=== PATIENT | male | born 1995 | race Caucasian/White ===

== ENCOUNTER 2023-05-30 14:50 | Inpatient (IN) | payer MEDICAID ==
[~2023-05-30] VITALS: Ht 188 cm; Wt 78.1 kg
[2023-05-30] MEDS ORDERED: LIDOcaine 1% W/epiNEPHrine 1:100,000 20ml vial SQ ONE (15:40)
[2023-05-30] MEDS: ondansetron 4mg rapidly disintigrating tab PO ONE (15:45)
[2023-05-30] MEDS ORDERED: VANCOMYCIN 1,500MG inj. 1,500 MG in normal saline 500ml IV soln 300 ML IV SCH (15:45)
[2023-05-30] MEDS: HYDROcodone/acetaminophen 5mg/325mg tablet PO ONE (15:45)
[2023-05-30] MEDS: ketorolac trometh. 30mg/ml inj. IM ONE (15:47)
[2023-05-30] MEDS: LIDOCAINE 1%/EPI 1:100,000 inj. 10 ML multi-dose vial SQ ONE (15:48)
[2023-05-30] MEDS: TETanus/Pertussis (Acell)/Diphther VAC/PF (Tdap-Adult) 0.5ml syringe IMVAC ONE (15:53)
[2023-05-30] MEDS: VANCOMYCIN 1,500MG inj. 1,500 MG in normal saline 500ml IV soln 300 ML IV ONE (16:10)
[2023-05-30] MEDS: normal saline 1000ml 1,000 ML IV ONE (16:10)
[2023-05-30 17:31] LABS: BASOPHILS # (AUTO) 0.1 X10'3 (0-0.2); BASOPHILS % (AUTO) 0.6 % (0-1); EOSINOPHILS # (AUTO) 0.1 X10'3 (0-0.9); EOSINOPHILS % (AUTO) 0.3 % (0-6); HEMATOCRIT 37.3 % (42.0-52.0); HEMOGLOBIN 12.4 g/dl (14.0-17.9); LYMPHOCYTES % (AUTO) 10.8 % (21-51); MEAN CORPUSCULAR HGB CONC 33.3 g/dL (33.0-36.5); MEAN CORPUSCULAR VOLUME 93.2 FL (78-98); MEAN PLATELET VOLUME 6.8 FL (7.4-10.4); MONOCYTES # (AUTO) 1.4 X10'3 (0-0.9); MONOCYTES % (AUTO) 7.6 % (2-12); NEUTROPHILS # (AUTO) 14.8 X10'3 (1.8-7.7); NEUTROPHILS % (AUTO) 80.7 % (42-75); PLATELET COUNT 498 X10'3 (140-440); RED CELL DISTRIBUTION WIDTH 12.5 % (11.5-14.5); WHITE BLOOD COUNT 18.3 X10'3 (4.5-11.0)
[2023-05-30 17:48] LABS: ALANINE AMINOTRANSFERASE 12 U/L (12-78); ALBUMIN 2.9 G/DL (3.4-5.0); ALBUMIN/GLOBULIN RATIO 0.8 (1.1-1.5); ALKALINE PHOSPHATASE 71 IU/L (46-116); ANION GAP 9 (8-16); ASPARTATE AMINO TRANSFERASE 10 U/L (10-37); BILIRUBIN,TOTAL 0.5 MG/DL (0.1-1.0); BLOOD UREA NITROGEN 17 MG/DL (7-18); BUN/CREATININE RATIO 18.1 (10.0-20.0); C-REACTIVE PROTEIN 7.08 MG/DL (0.0-0.5); CALCIUM 8.2 MG/DL (8.5-10.1); CHLORIDE 106 MMOL/L (99-107); CREATININE 0.94 MG/DL (0.60-1.10); GLUCOSE 98 MG/DL (70-104); MAGNESIUM 1.8 MG/DL (1.5-2.4); POTASSIUM 3.6 MMOL/L (3.5-5.1); SODIUM 141 MMOL/L (135-145); TOTAL CARBON DIOXIDE 26.1 MMOL/L (24-32); TOTAL PROTEIN 6.5 G/DL (6.4-8.2); eCRCL 129 ML/MIN; eGFR > 90 ML/MIN
[2023-05-30] MEDS ORDERED: iohexol 300mg/ml 100ml inj. ONE (17:54)
[2023-05-30] MEDS: cefepime 2g/NS 100ml ADVANTAGE 100 ML IV ONE ×2 (18:29→20:00)
[2023-05-30] MEDS ORDERED: potassium Cl 20 mEq SR tablet PO PRN ×2 (19:40)
[2023-05-30] MEDS ORDERED: magnesium 4gm in 100ml NS 100 ML IV PRN (19:40)
[2023-05-30] MEDS ORDERED: potassium Cl 40MEQ/1/2NS 520ml 520 ML IV PRN (19:40)
[2023-05-30] MEDS ORDERED: ondansetron/PF 4mg/2ml inj IV PRN (19:40)
[2023-05-30] MEDS ORDERED: acetaminophen 325mg tablet PO PRN (19:40)
[2023-05-30] MEDS ORDERED: magnesium hydroxide 30ml (MOM) UD suspension PO PRN (19:40)
[2023-05-30] MEDS ORDERED: mag hydrox/Alum hydrox/simeth 30ml oral suspension PO PRN (19:40)
[2023-05-30] MEDS ORDERED: magnesium 2GM in 50ml NS 50 ML IV PRN (19:40)
[2023-05-30] MEDS ORDERED: magnesium Cl slow-release 64mg tablet PO PRN (19:40)
[2023-05-30] MEDS: K and/or MAG REPLACEMENT MC SCH (20:00)
[2023-05-30] MEDS: folic acid 1mg tablet PO ONE (20:00)
[2023-05-30] MEDS: thiamine 100mg tablet PO ONE (20:00)
[2023-05-30] MEDS ORDERED: enoxaparin 40mg/0.4ml syringe SQ SCH (20:00)
[2023-05-30] MEDS ORDERED: cefepime 2g/NS 100ml ADVANTAGE 100 ML IV SCH (20:00)
[2023-05-30] MEDS ORDERED: vancomycin/NS 1 GM ADD-VANTAGE 250 ML X 1 DOSE IV ONE ×2 (20:20→21:50)
[2023-05-30] MEDS ORDERED: VANCOmycin 2,000MG in NS 500ml IV soln IV ONE (21:00)
[2023-05-30] MEDS: normal saline 1000ml 1,000 ML IV SCH (21:40)
[2023-05-30] MEDS: heparin, porcine 5000 units/ml vial SQ SCH (21:53)
[2023-05-30] MEDS ORDERED: vancomycin/NS 1 GM ADD-VANTAGE 250 ML IV SCH (22:45)
[2023-05-30] MEDS: VANCOmycin 1250MG/NS 250ml Bag 250 ML IV SCH (23:21)
[2023-05-30 23:24] LABS: PHOSPHORUS 3.5 MG/DL (2.3-4.5); THYROID STIMULATING HORMONE 1.13 ulU/ml (0.34-4.50)
[2023-05-31 06:54] LABS: BASOPHILS # (AUTO) 0.1 X10'3 (0-0.2); BASOPHILS % (AUTO) 0.9 % (0-1); EOSINOPHILS # (AUTO) 0.1 X10'3 (0-0.9); EOSINOPHILS % (AUTO) 0.6 % (0-6); HEMATOCRIT 38.7 % (42.0-52.0); LYMPHOCYTES # (AUTO) 2.4 X10'3 (1.1-4.8); LYMPHOCYTES % (AUTO) 17.9 % (21-51); MEAN CORPUSCULAR HEMOGLOBIN 31.1 PG (27.0-31.0); MEAN CORPUSCULAR HGB CONC 33.6 g/dL (33.0-36.5); MEAN CORPUSCULAR VOLUME 92.6 FL (78-98); MEAN PLATELET VOLUME 7.2 FL (7.4-10.4); MONOCYTES % (AUTO) 7.2 % (2-12); NEUTROPHILS # (AUTO) 9.9 X10'3 (1.8-7.7); NEUTROPHILS % (AUTO) 73.4 % (42-75); PLATELET COUNT 453 X10'3 (140-440); RED BLOOD COUNT 4.18 X10'6 (4.70-6.10); RED CELL DISTRIBUTION WIDTH 12.8 % (11.5-14.5); WHITE BLOOD COUNT 13.5 X10'3 (4.5-11.0)
[2023-05-31] MEDS ORDERED: vancomycin/NS 1 GM ADD-VANTAGE 250 ML IV SCH (07:00)
[2023-05-31 07:30] LABS: ALANINE AMINOTRANSFERASE 12 U/L (12-78); ALBUMIN 2.9 G/DL (3.4-5.0); ALBUMIN/GLOBULIN RATIO 0.7 (1.1-1.5); ALKALINE PHOSPHATASE 70 IU/L (46-116); ANION GAP 5 (8-16); BILIRUBIN,TOTAL 0.5 MG/DL (0.1-1.0); BLOOD UREA NITROGEN 18 MG/DL (7-18); BUN/CREATININE RATIO 23.4 (10.0-20.0); CALCIUM 9.5 MG/DL (8.5-10.1); CHLORIDE 105 MMOL/L (99-107); CHOLESTEROL 136 MG/DL (0-200); CREATININE 0.77 MG/DL (0.60-1.10); GLUCOSE 106 MG/DL (70-104); HDL CHOLESTEROL 45 MG/DL (35-60); LDL CHOLESTEROL 65 MG/DL (50-100); SODIUM 138 MMOL/L (135-145); TOTAL CARBON DIOXIDE 28.4 MMOL/L (24-32); TOTAL PROTEIN 6.8 G/DL (6.4-8.2); TRIGLYCERIDES 83 MG/DL (20-135); eCRCL 158 ML/MIN; eGFR > 90 ML/MIN
[2023-05-31 07:50] LABS: ASPARTATE AMINO TRANSFERASE 13 U/L (10-37); POTASSIUM 4.2 MMOL/L (3.5-5.1)
[2023-05-31] MEDS: nicotine 21mg patch - 24 hr TD SCH (08:00)
[2023-05-31] MEDS: JUVEN Shake w/Arg/Glut/Ca2+Bmb (Juven 19.3gm) pkt 240ml PO SCH (08:00)
[2023-05-31] MEDS: pantoprazole 40mg Tablet.DR PO SCH (08:13)
[2023-05-31] MEDS: cefepime 2g/NS 100ml ADVANTAGE 100 ML IV SCH (09:53)
[2023-05-31 10:57] LABS: BILIRUBIN,URINE NEGATIVE (Neg); CLARITY,URINE CLEAR (Clear); COLOR,URINE YELLOW (Yellow); GLUCOSE, URINE NEGATIVE (Neg); KETONES,URINE NEGATIVE (Neg); LEUKOCYTE ESTERASE ,URINE NEGATIVE (Neg); NITRITES, URINE NEGATIVE (Neg); OCCULT BLOOD,URINE SMALL (Neg); PH,URINE 6.5 (4.8-8.0); PROTEIN,URINE NEGATIVE (Neg); UROBILINOGEN,URINE 0.2 E.U/dL (0.2-1.0)
[2023-05-31 11:06] LABS: UA COLLECTION TYPE CLN CATCH MIDSTREAM
[2023-05-31 11:19] LABS: URINE AMPHETAMINE SCREEN POSITIVE (Neg); URINE BARBITUATE SCREEN NEGATIVE (Neg); URINE BENZODIAZEPINES SCREEN NEGATIVE (Neg); URINE CANNABINOID SCREEN POSITIVE (Neg); URINE COCAINE SCREEN NEGATIVE (Neg); URINE METHADONE SCREEN NEGATIVE (Neg); URINE OPIATE SCREEN NEGATIVE (Neg); URINE PHENCYCLIDINE SCREEN NEGATIVE (Neg)
[2023-05-31 11:57] LABS: BACTERIA,URINE FEW /HPF (Neg); MUCUS STRANDS NONE SEEN /LPF (Neg); RBC,URINE 0-2 /HPF (0-2); SQUAMOUS EPITHELIAL CELL,UR FEW /LPF (FEW); WBC,URINE 0-4 /HPF (0-4)
[2023-05-31] MEDS: vancomycin/NS 1 GM ADD-VANTAGE 250 ML IV SCH (12:00)
[2023-05-31 13:30] VITALS: RESP 14; O2SAT 97
[2023-05-31] MEDS ORDERED: NO HOME MEDS (16:08)
[2023-05-31] MEDS: morphine 2 MG/ML inj. syringe IV PRN ×2 (16:18→21:17)
[2023-05-31 18:00] VITALS: BP 117/61; PULSE 60; RESP 13; TEMP 99.2; O2SAT 99
[2023-05-31] MEDS ORDERED: HYDROcodone/acetaminophen 5mg/325mg tablet PO PRN (18:25)
[2023-05-31] MEDS: HYDROcodone/acetaminophen 10/325mg tab PO PRN (18:52)
[2023-05-31 20:00] VITALS: RESP 13; O2SAT 99
[2023-05-31 22:00] VITALS: BP 120/61; PULSE 63; RESP 16; TEMP 98.1; O2SAT 97
[2023-05-31] MEDS: VANCOMYCIN LEVEL IV ONE (23:49)
[2023-06-01 06:25] LABS: BASOPHILS # (AUTO) 0.1 X10'3 (0-0.2); BASOPHILS % (AUTO) 1.1 % (0-1); EOSINOPHILS # (AUTO) 0.1 X10'3 (0-0.9); EOSINOPHILS % (AUTO) 1.2 % (0-6); HEMATOCRIT 35.4 % (42.0-52.0); HEMOGLOBIN 12.1 g/dl (14.0-17.9); LYMPHOCYTES # (AUTO) 2.5 X10'3 (1.1-4.8); LYMPHOCYTES % (AUTO) 28.3 % (21-51); MEAN CORPUSCULAR HEMOGLOBIN 31.6 PG (27.0-31.0); MEAN CORPUSCULAR HGB CONC 34.1 g/dL (33.0-36.5); MEAN CORPUSCULAR VOLUME 92.7 FL (78-98); MEAN PLATELET VOLUME 7.4 FL (7.4-10.4); MONOCYTES # (AUTO) 0.7 X10'3 (0-0.9); MONOCYTES % (AUTO) 8.5 % (2-12); NEUTROPHILS # (AUTO) 5.4 X10'3 (1.8-7.7); NEUTROPHILS % (AUTO) 60.9 % (42-75); PLATELET COUNT 469 X10'3 (140-440); RED BLOOD COUNT 3.82 X10'6 (4.70-6.10); RED CELL DISTRIBUTION WIDTH 12.7 % (11.5-14.5); WHITE BLOOD COUNT 8.8 X10'3 (4.5-11.0)
[2023-06-01 06:42] LABS: ALANINE AMINOTRANSFERASE 12 U/L (12-78); ALBUMIN 2.7 G/DL (3.4-5.0); ALBUMIN/GLOBULIN RATIO 0.8 (1.1-1.5); ALKALINE PHOSPHATASE 63 IU/L (46-116); ANION GAP 6 (8-16); ASPARTATE AMINO TRANSFERASE 7 U/L (10-37); BILIRUBIN,TOTAL 0.4 MG/DL (0.1-1.0); BLOOD UREA NITROGEN 13 MG/DL (7-18); BUN/CREATININE RATIO 18.1 (10.0-20.0); CALCIUM 8.6 MG/DL (8.5-10.1); CHLORIDE 107 MMOL/L (99-107); CREATININE 0.72 MG/DL (0.60-1.10); GLUCOSE 87 MG/DL (70-104); SODIUM 139 MMOL/L (135-145); TOTAL CARBON DIOXIDE 26.3 MMOL/L (24-32); TOTAL PROTEIN 6.3 G/DL (6.4-8.2); eCRCL 169 ML/MIN; eGFR > 90 ML/MIN
[2023-06-01 07:00] VITALS: BP 113/65; PULSE 60; RESP 18; TEMP 98.5; O2SAT 99
[2023-06-01 10:00] VITALS: BP 125/64; PULSE 73; RESP 18; TEMP 98.4; O2SAT 97
[2023-06-01 13:02] VITALS: RESP 18; O2SAT 98
[2023-06-01] MEDS: VANCOmycin 1250MG/NS 250ml Bag 250 ML IV SCH (16:47)
[2023-06-01 19:00] VITALS: BP 105/66; PULSE 72; RESP 20; TEMP 98.4; O2SAT 97
[2023-06-01 22:00] VITALS: BP 109/64; PULSE 67; RESP 18; TEMP 98.1; O2SAT 97
[2023-06-02 06:00] VITALS: BP 115/63; PULSE 80; RESP 16; TEMP 98; O2SAT 99
[2023-06-02 07:14] LABS: BASOPHILS # (AUTO) 0.1 X10'3 (0-0.2); BASOPHILS % (AUTO) 1.3 % (0-1); EOSINOPHILS # (AUTO) 0.1 X10'3 (0-0.9); EOSINOPHILS % (AUTO) 1.8 % (0-6); HEMATOCRIT 36.9 % (42.0-52.0); HEMOGLOBIN 12.6 g/dl (14.0-17.9); LYMPHOCYTES % (AUTO) 28.8 % (21-51); MEAN CORPUSCULAR HEMOGLOBIN 31.7 PG (27.0-31.0); MEAN CORPUSCULAR HGB CONC 34.3 g/dL (33.0-36.5); MEAN CORPUSCULAR VOLUME 92.6 FL (78-98); MONOCYTES # (AUTO) 0.6 X10'3 (0-0.9); NEUTROPHILS % (AUTO) 59.1 % (42-75); PLATELET COUNT 483 X10'3 (140-440); RED BLOOD COUNT 3.99 X10'6 (4.70-6.10); RED CELL DISTRIBUTION WIDTH 12.4 % (11.5-14.5); WHITE BLOOD COUNT 6.8 X10'3 (4.5-11.0)
[2023-06-02 07:15] LABS: ALANINE AMINOTRANSFERASE 9 U/L (12-78); ALBUMIN 2.7 G/DL (3.4-5.0); ALBUMIN/GLOBULIN RATIO 0.7 (1.1-1.5); ALKALINE PHOSPHATASE 61 IU/L (46-116); ANION GAP 8 (8-16); ASPARTATE AMINO TRANSFERASE 9 U/L (10-37); BILIRUBIN,TOTAL 0.4 MG/DL (0.1-1.0); BLOOD UREA NITROGEN 13 MG/DL (7-18); BUN/CREATININE RATIO 15.1 (10.0-20.0); CALCIUM 7.9 MG/DL (8.5-10.1); CHLORIDE 107 MMOL/L (99-107); CREATININE 0.86 MG/DL (0.60-1.10); GLUCOSE 88 MG/DL (70-104); POTASSIUM 4.2 MMOL/L (3.5-5.1); SODIUM 143 MMOL/L (135-145); TOTAL CARBON DIOXIDE 28.3 MMOL/L (24-32); TOTAL PROTEIN 6.5 G/DL (6.4-8.2); eCRCL 141 ML/MIN; eGFR > 90 ML/MIN
[2023-06-02 08:00] VITALS: RESP 16; O2SAT 97
[2023-06-02] MEDS: JUVEN Shake w/Arg/Glut/Ca2+Bmb (Juven 19.3gm) pkt 240ml PO SCH (08:00)
[2023-06-02 10:00] VITALS: BP 125/64; PULSE 73; RESP 18; TEMP 98.4; O2SAT 97
[2023-06-02] MEDS ORDERED: LEVO750T68 PO (13:15)
[2023-06-02] MEDS ORDERED: ONDA4TAB12 PO (13:15)
[2023-06-02] MEDS ORDERED: NICO-687 TD (13:15)
[2023-06-02] MEDS ORDERED: HYDR-3972 PO (13:15)
[2023-06-02] MEDS: VANCOMYCIN LEVEL IV ONE (15:30)
[2023-06-02 18:55] VITALS: BP 99/57; PULSE 68; RESP 16; TEMP 98.4; O2SAT 100
[2023-06-02] MEDS: VANCOmycin 1250MG/NS 250ml Bag 250 ML IV SCH (20:50)
[2023-06-03 04:38] LABS: ALANINE AMINOTRANSFERASE 17 U/L (12-78); ALBUMIN 3.1 G/DL (3.4-5.0); ALBUMIN/GLOBULIN RATIO 0.8 (1.1-1.5); ALKALINE PHOSPHATASE 65 IU/L (46-116); ANION GAP 12 (8-16); ASPARTATE AMINO TRANSFERASE 19 U/L (10-37); BILIRUBIN,TOTAL 0.3 MG/DL (0.1-1.0); BLOOD UREA NITROGEN 24 MG/DL (7-18); BUN/CREATININE RATIO 28.9 (10.0-20.0); CALCIUM 9.1 MG/DL (8.5-10.1); CHLORIDE 104 MMOL/L (99-107); CREATININE 0.83 MG/DL (0.60-1.10); GLUCOSE 85 MG/DL (70-104); POTASSIUM 4.2 MMOL/L (3.5-5.1); SODIUM 143 MMOL/L (135-145); TOTAL CARBON DIOXIDE 27.1 MMOL/L (24-32); eCRCL 146 ML/MIN; eGFR > 90 ML/MIN
[2023-06-03 04:58] LABS: BASOPHILS # (AUTO) 0.1 X10'3 (0-0.2); EOSINOPHILS # (AUTO) 0.1 X10'3 (0-0.9); EOSINOPHILS % (AUTO) 1.8 % (0-6); HEMATOCRIT 38.5 % (42.0-52.0); HEMOGLOBIN 13.5 g/dl (14.0-17.9); LYMPHOCYTES # (AUTO) 2.7 X10'3 (1.1-4.8); LYMPHOCYTES % (AUTO) 38.7 % (21-51); MEAN CORPUSCULAR HEMOGLOBIN 32.2 PG (27.0-31.0); MEAN CORPUSCULAR HGB CONC 35.1 g/dL (33.0-36.5); MEAN CORPUSCULAR VOLUME 91.8 FL (78-98); MEAN PLATELET VOLUME 7.3 FL (7.4-10.4); MONOCYTES # (AUTO) 0.5 X10'3 (0-0.9); MONOCYTES % (AUTO) 7.7 % (2-12); NEUTROPHILS # (AUTO) 3.6 X10'3 (1.8-7.7); NEUTROPHILS % (AUTO) 50.8 % (42-75); PLATELET COUNT 555 X10'3 (140-440); RED CELL DISTRIBUTION WIDTH 12.4 % (11.5-14.5); WHITE BLOOD COUNT 7.1 X10'3 (4.5-11.0)
[2023-06-03 07:00] VITALS: BP 109/62; PULSE 77; RESP 19; TEMP 98.1; O2SAT 97
[2023-06-03 11:30] VITALS: BP 102/53; PULSE 72; RESP 16; TEMP 97.6; O2SAT 99
[2023-06-03] MEDS: magnesium hydroxide 30ml (MOM) UD suspension PO ONE (11:57)
[2023-06-03] MEDS ORDERED: VANCOMYCIN LEVEL IJ ONE (20:30)
== END 2023-06-03 13:41 | disposition home or self-care (01) | DRG 720 ==
LOC: ER 14:51 → ED HOLD 19:41 → S STAY 05-31 13:19 → ORTHO 4S 05-31 16:30
PROVIDERS: ADMIT Family Medicine; ATTEND Family Medicine
PROC: 0X9J0ZZ Drainage of Right Hand, Open Approach (ICD-10-PCS; principal; 2023-05-30)
PROC: BP2N1ZZ Computerized Tomography (CT Scan) of Right Hand using Low Osmolar Contrast (ICD-10-PCS; 2023-05-30)
DX: A41.9 Sepsis, unspecified organism (principal); E44.0 Moderate protein-calorie malnutrition; E88.09 Other disorders of plasma-protein metabolism, not elsewhere classified; F17.200 Nicotine dependence, unspecified, uncomplicated; S61.401A Unspecified open wound of right hand, initial encounter; D64.9 Anemia, unspecified; L03.113 Cellulitis of right upper limb; X58.XXXA Exposure to other specified factors, initial encounter; L02.511 Cutaneous abscess of right hand; Z59.00 Homelessness unspecified; Z88.0 Allergy status to penicillin; Y93.89 Activity, other specified; Y92.89 Other specified places as the place of occurrence of the external cause; Y99.8 Other external cause status; Z68.22 Body mass index [BMI] 22.0-22.9, adult
CPT/HCPCS: 36415; 73201; 80053; 80061; 80202; 80305; 81001; 83036; 83605; 83735; 84100; 84145; 84443; 85025; 86140; 87040; 87070; 87077; 87081; 87185; 87186; 90715; 99285; A6223; A6258; A6266; A6446; A6449; G0378; J0692; J1644; J1885; J2270; J3370; J3490; J7030; J7040; Q9967